=== PATIENT | female | born 1995 | race Caucasian/White ===

== ENCOUNTER → 2024-11-15 16:21 | Outpatient (REF) | payer BC, SELFPAY | LOC: PNTC 16:21 | PROVIDERS: ATTENDING PHYSICIAN Student in an Organized Health Care Education/Training Program | DX: Q43.3 Congenital malformations of intestinal fixation (principal); O28.3 Abnormal ultrasonic finding on antenatal screening of mother | CPT/HCPCS: 76805 ==